=== PATIENT | female | born 1990 | race Two or more races ===

== ENCOUNTER 2024-10-28 08:47 | Emergency (ER) | payer SELFPAY ==
[2024-10-28 08:48] VITALS: BMI 26.5
[2024-10-28 09:02] VITALS: BP 118/71; PULSE 107; RESP 18; TEMP 36.9; O2SAT 97
--- NOTE | 2024-10-28 09:17 | EDNOTE_ITS ---
<Statement entered by Joaquina Tavarez MD - 10/28/24 10:56> As co-signing physician, I was present and available for consult prn. I concur with the plan and care as documented by the midlevel provider. Upper Respiratory Inf. RME/HPI General Chief Complaint: Flu Like Symptoms Stated Complaint: COUGH WITH DIFF BREATHING X6D, PREG 30WK Time Seen by Provider: 10/28/24 08:57 Source: patient Arrival date/time: 10/28/24 08:47 34-year-old female with no known medical history presents to the emergency room with a chief complaint of a cough, sore throat, shortness of breath x 6 days. Patient is currently 30 weeks . Mode of arrival: ambulatory Limitations: no limitations Related Data Home Medications ?Medication ?Instructions ?Recorded ?Confirmed loratadine 10 mg tablet (Claritin) 10 mg PO QDAY #0 ta bs 06/11/17 Previous Rx's ?Medication ?Instructions ?Recorded clindamycin HCl 300 mg capsule 1 cap PO QID #40 caps 1 08/12/16 ibuprofen 800 mg tablet 800 mg PO Q8HR PRN PAIN #30 tabs 06/11/17 dextromethorphan HBr 15 mg tablet 30 mg (2 x 15 mg) PO Q8H PRN cough 10/28/24 (Delsym Cough) #14 tabs Allergies Allergy/AdvReac Type Severity Reaction Status Date / Time NKA* Allergy Uncoded 10/28/24 08:50 Review of Systems Review of Systems Systems Reviewed: All systems reviewed, normal except as documented Constitutional Constitutional: Reports system reviewed and no additional complaints, except as documented, Denies fatigue, Denies fever(s), Denies headache(s) and Denies weakness Eyes Eyes: Reports system reviewed and no additional complaints, except as documented, Denies blurry vision and Denies change in vision ENT Ears, Nose, Mouth, and Throat: Reports system reviewed and no additional complaints, except as documented, Denies otalgia, Denies headache(s), Denies nasal congestion, Denies throat swelling and Denies vertigo Cardiovascular Cardiovascular: Reports system reviewed and no additional complaints, except as documented, Denies chest pain, Denies dyspnea and Denies dyspnea on exertion Respiratory Respiratory: Reports system reviewed and no additional complaints, except as documented, Reports chest congestion, Reports cough, Denies dyspnea, Denies dyspnea on exertion and Denies wheezing Gastrointestinal Gastrointestinal: Reports system reviewed and no additional complaints, except as documented, Denies abdominal pain, Denies cramping, Denies nausea and Denies vomiting Genitourinary Genitourinary: Reports system reviewed and no additional complaints, except as documented Musculoskeletal Musculoskeletal: Reports system reviewed and no additional complaints, except as documented and Denies back pain Integumentary/Breasts Skin/Breast: Reports system reviewed and no additional complaints, except as documented and Denies wounds Neurologic Neurologic: Reports system reviewed and no additional complaints, except as documented, Denies confusion, Denies headache(s), Denies lack of coordination, Denies vertigo and Denies weakness Psychiatric Psychiatric: Reports system reviewed and no additional complaints, except as documented, Denies anxiety, Denies confusion, Denies depression, Denies paranoia, Denies suicidal ideation and Denies tactile hallucinations Endocrine Endocrine: Reports system reviewed and no additional complaints, except as documented and Denies fatigue Hematologic/Lymphatic Hematologic/Lymphatic: Reports system reviewed and no additional complaints, except as documented and Denies lymphadenopathy Allergic/Immunologic Allergic/Immunologic: Reports system reviewed and no additional complaints, except as documented, Denies throat swelling, Denies urticaria and Denies wheezing ED Exam General Limitations: Present no limitations General appearance: Present alert and in no apparent distress Head Head exam: Present atraumatic Eye Eye exam: Present normal appearance, PERRL and EOMI ENT ENT exam: Present normal exam, normal oropharynx and mucous membranes moist Neck Neck exam: Present normal inspection, full ROM and trachea midline Chest Chest inspection: Present normal inspection and symmetric chest wall rise Respiratory Respiratory exam: Present normal lung sounds bilaterally; Absent respiratory distress, wheezes, stridor, accessory muscle use or prolonged expiratory phase Cardiovascular Cardiovascular exam: Present regular rate, normal rhythm and normal heart sounds Abdominal Exam Abdominal exam: Present soft and normal bowel sounds Extremities Exam Extremities exam: Present normal inspection and full ROM Back Exam Back exam: Present normal inspection and full ROM Neurological Exam Neurological exam: Present alert, oriented X3 and CN II-XII intact Psychiatric Psychiatric exam: Present normal affect and normal mood Skin Skin exam: Present warm, dry, intact and normal color Course Quality Measures none Orders Category Date Time Status Bedside COVID-19 Antigen Test NOW Care 10/28/24 09:16 Active Bedside Influenza A&B Antigen Test NOW Care 10/28/24 09:16 Completed Strep A Rapid Stat Lab 10/28/24 09:21 Completed Vital Signs Vital signs: Vital Signs Temperature 98.4 F 10/28/24 09:02 Pulse Rate 107 H 10/28/24 09:02 Respiratory Rate 18 10/28/24 09:02 Blood Pressure 118/71 10/28/24 09:02 Pulse Oximetry (%) 97 10/28/24 09:02 Oxygen Delivery Method Room Air 10/28/24 09:02 O2 saturation 97% within normal limits Upper Respiratory Infection MDM Narrative MDM Narrative:: 34-year-old female with no known medical history presents to the emergency room with a chief complaint of a cough, sore throat, shortness of breath x 6 days. Patient is currently 30 weeks . Patient is hemodynamically stable and in no apparent distress. There is no tachycardia no tachypnea no fever and O2 saturation is 97% on room air Physical examination shows clear bilateral lung sounds there is no wheezing there is no abnormal breath sounds there is no accessory muscle use. Patient is currently 30 weeks and denies any complications with the . Due to the patient's a chest x-ray was deferred. COVID-19 influenza a nd strep test were all negative Patient was discharged and educated to follow-up with primary care provider in the next 24 to 48 hours and return to the emergency room for any evidence of worsening signs or symptoms Patient data External records reviewed:: [facility] previous records Clinical information provided by:: patient Social determinants that could affect healthcare access:: none Patient has the following chronic illnesses:: No chronic illness How is presenting disease/condition affected by chronic disease/condition?: no chronic disease Evaluation data The following diagnostics were reviewed and interpreted by me:: lab results and radiology exam(s) Lab and/or radiology exams considered but not ordered:: Labs radiology exams considered in order Interpretation Summary: N/A Medications / Prescriptions Medications or Prescriptions considered but not ordered:: No medication given Medication administrations:: No medication given Consultations Consultation(s) initiated? (list below): No Diagnosis Upper Respiratory Differential Diagnosis: upper respiratory infection, viral infection, bronchitis, influenza and pharyngitis Most likely diagnosis given after review of the tests above:: Upper respiratory infection viral Admission Indicated Admission indicated?: not indicated Admission Request Was there a request for admission?: No Disposition Plan Disposition Plan: Discharge Discharge Attestation Discharge Attestation: The patient and all family members were given an opportunity to ask questions and understood the discharge instructions. Discharge instructions specifically effects, indications for sooner follow up or return to the emergency department, and the expected course of current diagnosis. Patient condition: Stable Discharge Plan Plan Patient Disposition: HOME (Self Care) Discharge Disposition comment: Stable Prescriptions/Referrals Prescriptions/Med Rec: New Delsym Cough 15 mg tablet 30 mg PO Q8H PRN (Reason: cough) Qty: 14 0RF No Action loratadine [Claritin] 10 MG tablet 10 mg PO QDAY Qty: 0 clindamycin HCl 300 MG capsule 1 cap PO QID Qty: 40 0RF Rx Instructions: use for 10 days ibuprofen 800 MG tablet 800 mg PO Q8HR PRN (Reason: PAIN) Qty: 30 0RF Referrals: No Primary/Family,Physician [Primary Care Provider] - In 1 week Problem List Clinical Impression: Upper respiratory infection Patient/Caregiver Discharge Instructions Education Materials: ED URI, Viral, No Abx (Adult) Additional Instructions: Please follow-up with your primary care provider in the next 24 to 48 hours. Your COVID-19, influenza, strep test were all negative. At this time due to your we are not able to do a chest x-ray but your lung sounds were clear in my suspicion for pneumonia is very low. You are most likely cause is a viral upper respiratory infection Medication was sent to your pharmacy for your cough For any evidence of worsening signs or symptoms return to the emergency room immediately Print Language: Welsh Stand Alone Forms: Tatyana Award Info., Work/School Release, Patient Portal Info Letter PAWAN/CLARISSE Supervising Physician PAWAN/CLARISSE Supervising Physician: Dr. TAVAREZ
[2024-10-28 10:21] LABS: Strep A Rapid Negative (Negative)
== END 2024-10-28 12:15 | disposition home or self-care (01) ==
PROVIDERS: Nurse Practitioner Family; Emergency Provider Emergency Medicine
DX: O99.513 Diseases of the respiratory system complicating pregnancy, third trimester (principal); J06.9 Acute upper respiratory infection, unspecified; Z3A.30 30 weeks gestation of pregnancy
CPT/HCPCS: 87400; 87651; 87811; 99283

== ENCOUNTER 2025-01-10 15:12 | Outpatient (AMBR) | payer SELFPAY ==
--- NOTE | 2025-01-18 15:07 | LAC.VISIT ---
Assessment LAC Breast Assessment Breast Assessment Bilateral: Breast Assessment Comment: mom has large breasts, and large nipple on the right and extra large on the left Alternative Milk Expression Alternative Milk Expression Alternative Method Used: Yes Method Used: Pumping Alternative Method Comment: issued mom a breast pump from [employer] [facility]. mom needs pump since baby not latching well and causing her so much pain. Baby looks to have oral tissue tethers. will make referral Alternative Method Used Reason: Stimulation, Poor Feeding and Sore Nipples Alternative Method Produced Milk / Colostrum: Yes Production Amount: 2 (ounces combined) Pump Used: Electric Pumping Frequency Per Day: 5 Pumping Frequency Comment: mom is using a loaner from [facility], hospital grade, [facility] pumping set up LAC Assessment Breast Feeding Assessment Date of : 12/31/24 Current Age of baby: 11 (days) Weight: 3543.69 g Current weight of baby: 3345.244 g Color of Urine: having some zulma colored diapers, not every one but some Breast Feeding Ability: Mother Needs Assistance Complications: Weight loss and Difficult Latch [place] Complications Comment: baby has oral tissue tethers and moms nipples are cracked, bruised and bleeding. mom has breast fed 3 other children and has never had any issues before. she is an experienced nurser. [place] Activity Level: Awake / Alert and Crying Muscle Tone: Tense [place] Suck Quality: Tongue Retracts and Tongue Thrusts Effective [place] Suck: No [place] Swallow: Occasional [place] Jaw: Receding [place] Lip Seal: Weak Suction and Tight Lips Feeding Posistion: Cross Cradle Additional Latch or Posistion Assistance Needed: Moderate Breast Feeding Comment: baby fights the position, he does not take all of mom's nipple in his mouth. he keeps readjusting to accomodate for tierd muscles in the mouth. baby fed on the left breast for 18 minutes, post weight shows no gain. after feeding off the right breast for 20 minutes there was .2 inrease. Pre Weight (before feeding): 3345.244 g Post Weight (post feeding): 3350.914 g % gained or lost: No Change LAC Intervention Interventions Tools: Nipple Shield and Pump Other Tools: stressed to mom to use pump if baby was not emptying her out, she would need to do this after every feeding for at least 10-20 minutes to empty the breast. this would assure her that she would keep her milk supply up. Nipple Shield Size: Medium Techniques Discussed: Latch, Position and Pumping Discharge Follow Up Appointment Date and Time: 1 week Other Referral Made: Yes Feeding Preference at Discharge: Exclusive LAC [place] Oral Assessment Oral Assessment Prenulum Level: Posterior Lip: Tight Upper Lip Palate: Normal / Intact Oral Assessment Comment: possible buccal pad ties as well Dental Referral made: Yes Oral Assessment Comment: referral to Dr. Hood OP DC Assessment Discharge Follow Up Appointment Date and Time: 1 week Other Referral Made: Yes Visit Complete?: Yes
== END 2025-01-13 23:59 | disposition home or self-care (01) ==
LOC: HODLAC 15:12
DX: Z39.1 Encounter for care and examination of lactating mother (principal)

== ENCOUNTER 2025-01-17 15:27 | Outpatient (AMBR) | payer SELFPAY ==
--- NOTE | 2025-01-18 14:16 | LAC.VISIT ---
Assessment LAC Breast Assessment Breast Assessment Bilateral: Breast Assessment Comment: mom has red striations on the left breast on the exterior wall, also a round red swelling on the interior side of breast close to the areola. mom states that is was much worse 2 days ago and that it felt like she had a fever in her breast, even felt sickly. explained that this could be the start of mastitis. explained how to care for it and if it got worse to call PCP. mom has been also pumping as baby just got tongue tie release as well as lip and buccal pads released. LAC Pain Pain Bilateral Nipple: Pain Intensity: Mild (1-3) Character of Pain: Sharp Pain Comment: pain is mostly in the left nipple and due to extra large nipple, baby having a hard time staying on appropriately because mom having to use nipple shield because baby used to getting bottles. LAC Assessment Breast Feeding Assessment Date of : 12/[birth year]/24 Current Age of baby: 17 (days) Weight: 3543.69 g Current weight of baby: 3430.292 g Color of Stools: yellow Color of Urine: clear to light yellow Breast Feeding Ability: Well [place] Complications Comment: baby is fighting the breast as he has gotten bottles due to oral tissue tethers. now that they are clipped it is a process to get baby back to only. using the nipple shield to assist as well as an SNS. mom still pumps occasionally but has not been consistent with empltying out the breast completley thus haveing also lowered milk supply [place] Activity Level: Awake / Alert and Crying Muscle Tone: Tense [place] Suck Quality: [place] Compression, Rhythmic and Tongue Cups Well Effective Suck: Yes (effective suck when he wants, he was frustrated due to slow moving milk.) Swallow: Audible [place] Jaw: With In Norml Limits Lip Seal: Good Feeding Posistion: Football Additional Latch or Posistion Assistance Needed: Minimal Breast Feeding Comment: baby did not tolerate cradle hold well at the breast, assume due to bottles being his preference. used football hold to assist and baby tolerated much better, he did not fight being at the breast as much. stayed on for longer duration. LAC Intervention Interventions Tools: Nipple Shield and Aid Other Tools: SNS, mom did not bring any extra milk. so just hand expressed to get her milk moving. Nipple Shield Size: Medium Techniques Discussed: Latch, Position and Pumping Discharge Follow Up Appointment Date and Time: January 24 at 1pm Other Referral Made: No (mom followed up, oral tissue tethers were clipped on January [address] Hood) Feeding Preference at Discharge: Exclusive Pumped Brst Mlk LAC Oral Assessment Oral Assessment Prenulum Level: Normal Lip: Normal Exam Palate: Normal / Intact Dental Referral made: No LAC Education Education : Education Topics: Milk Production, Nipple Care and Signs of Adequate Intake OP DC Assessment Discharge Follow Up Appointment Date and Time: January 24 at 1pm Other Referral Made: No (mom followed up, oral tissue tethers were clipped on January [address] Hood) Visit Complete?: Yes
== END 2025-02-13 23:59 | disposition home or self-care (01) ==
LOC: HODLAC 15:27
DX: Z39.1 Encounter for care and examination of lactating mother (principal)